=== PATIENT | male | born 1995 | race Caucasian/White ===

== ENCOUNTER 2022-05-26 09:30 | Inpatient (IN) | payer MEDICAID, OTHER ==
[~2022-05-26] VITALS: Ht 180.3 cm; Wt 53.2 kg
[2022-05-26 10:40] LABS: Basophils # (auto) 0.1 10 ^3/uL (0-0.2); Eosinophils # (auto) 0.1 10 ^3/uL (0-0.8); Lymphocytes # (auto) 0.9 10 ^3/uL (0.4-5.4); Lymphocytes % (auto) 8.6 % (10.0-50.0); Monocytes # (auto) 0.4 10 ^3/uL (0-1.3); Red Cell Distribution Width 16.6 % (11.8-14.3)
[2022-05-26 10:44] LABS: Basophils % (auto) 0.7 % (0.0-2.0); Eosinophils % (auto) 0.7 % (0.0-7.0); Hematocrit 34.3 % (41.0-53.0); Mean Corpuscular Hemoglobin 26.6 pg (28.0-32.0); Mean Corpuscular Hgb Conc. 32.1 g/dL (32.0-36.0); Mean Corpuscular Volume 82.9 fL (80.0-100.0); Monocytes % (auto) 4.4 % (0.0-12.0); Neutrophils # (auto) 8.5 10 ^3/uL (1.6-8.6); Neutrophils % (auto) 85.6 % (37.0-80.0); Red Blood Cells 4.13 10^6/uL (4.5-5.90)
[2022-05-26 10:53] LABS: Albumin 2.5 g/dL (3.4-5.0); Calcium 8.8 mg/dL (8.5-10.1)
[2022-05-26 10:56] LABS: BUN/Creatinine Ratio 19.4; Bilirubin, Total 0.1 mg/dL (0.2-1.0)
[2022-05-26 11:17] LABS: Urine Bacteria NONE SEEN /hpf (None Seen); Urine Blood Negative /uL (Negative); Urine Specific Gravity 1.027 (1.001-1.035); Urine WBC 97 /hpf (0 - 3)
[2022-05-26] MEDS ORDERED: SODIUM CHLORIDE 0.9% 2,000 ML IV ONE (11:30)
[2022-05-26] MEDS ORDERED: IOHEXOL 300 MG/ML 100ML BOTTLE IJ ONE (14:22)
[2022-05-26] MEDS ORDERED: SODIUM CHLORIDE 0.9% 1,000 ML IV ONE ×2 (14:30→15:15)
[2022-05-26] MEDS ORDERED: CLINDAMYCIN 600MG IV 50 ML IV ONE (14:30)
[2022-05-26] MEDS ORDERED: InsuLIN REG 1unit/0.01ml Soln (100units/ml) IV ONE (15:15)
[2022-05-26] MEDS ORDERED: DEXTROSE (50%) 50ML SYRG IV PRN (15:15)
[2022-05-26] MEDS ORDERED: ONDANSETRON HCL 4 MG/2 ML VIAL IV PRN (15:15)
[2022-05-26] MEDS: INSULIN LANTUS (GLARGINE) 1 /0.01ml (100units/ml) SC SCH (17:54)
[2022-05-26] MEDS: InsuLIN REG 1unit/0.01ml Soln (100units/ml) SC SCH ×3 (17:59→23:49)
[2022-05-26] MEDS: ACCU-CHEK COMFORT CURVE STRIP VI SCH ×3 (18:00→23:48)
[2022-05-26] MEDS: SODIUM CHLORIDE 0.9% 1,000 ML IV SCH ×2 (18:16→23:47)
[2022-05-26 21:41] VITALS: BP 121/87
[2022-05-26 22:00] VITALS: BP 121/87
[2022-05-26 22:14] LABS: Amphetamine Screen, Urine NEGATIVE (NEGATIVE); Barbiturate Scree,Urine NEGATIVE (NEGATIVE); Benzodiazephine Screen, Urine NEGATIVE (NEGATIVE); Cannabinoid Screen, Urine NEGATIVE (NEGATIVE); Cocaine Screen, Urine NEGATIVE (NEGATIVE); Opiate Scree,Urine NEGATIVE (NEGATIVE); Phencyclidine Screen, Urine NEGATIVE (NEGATIVE)
[2022-05-27] VITALS (7 sets, daily range): BP systolic 112–124; BP diastolic 67–84
[2022-05-27] MEDS: ACCU-CHEK COMFORT CURVE STRIP VI SCH ×5 (04:20→20:55)
[2022-05-27] MEDS: InsuLIN REG 1unit/0.01ml Soln (100units/ml) SC SCH ×5 (04:21→20:57)
[2022-05-27] MEDS: SODIUM CHLORIDE 0.9% 1,000 ML IV SCH ×3 (04:35→15:00)
[2022-05-27 05:49] LABS: Basophils # (auto) 0 10 ^3/uL (0-0.2); Eosinophils # (auto) 0.1 10 ^3/uL (0-0.8); Hemoglobin 9.1 g/dL (13.5-17.5); Neutrophils # (auto) 5.9 10 ^3/uL (1.6-8.6)
[2022-05-27 05:52] LABS: Basophils % (auto) 0.5 % (0.0-2.0); Eosinophils % (auto) 1.7 % (0.0-7.0); Hematocrit 27.5 % (41.0-53.0); Lymphocytes % (auto) 13.5 % (10.0-50.0); Mean Corpuscular Hemoglobin 26.8 pg (28.0-32.0); Mean Corpuscular Hgb Conc. 33.2 g/dL (32.0-36.0); Mean Corpuscular Volume 80.7 fL (80.0-100.0); Monocytes # (auto) 0.4 10 ^3/uL (0-1.3); Monocytes % (auto) 4.8 % (0.0-12.0); Neutrophils % (auto) 79.5 % (37.0-80.0); Red Blood Cells 3.41 10^6/uL (4.5-5.90); Red Cell Distribution Width 16.5 % (11.8-14.3); White Blood Cell 7.4 10^3/uL (4.4-10.8)
[2022-05-27 05:54] LABS: BUN/Creatinine Ratio 16.2; Calcium 7.8 mg/dL (8.5-10.1); Potassium 3.7 mmol/L (3.5-5.1)
[2022-05-27] MEDS: INSULIN LANTUS (GLARGINE) 1 /0.01ml (100units/ml) SC SCH (06:18)
[2022-05-27] MEDS ORDERED: PANTOPRAZOLE 40 MG/10 ML VIAL INJ IV SCH (10:00)
[2022-05-27] MEDS ORDERED: cefTRIAXone 1GM/50ML D5W 50 ML IV ONE (15:00)
[2022-05-27] MEDS: cefTRIAXone 1GM/50ML D5W 50 ML IV SCH (15:05)
[2022-05-28] MEDS: ACCU-CHEK COMFORT CURVE STRIP VI SCH ×6 (00:08→20:02)
[2022-05-28] MEDS: SODIUM CHLORIDE 0.9% 1,000 ML IV SCH ×4 (00:09→18:56)
[2022-05-28] MEDS: InsuLIN REG 1unit/0.01ml Soln (100units/ml) SC SCH ×6 (04:40→20:02)
[2022-05-28 05:00] VITALS: BP 122/56
[2022-05-28] MEDS: INSULIN LISPRO (HUMAN) 100 UNITS/ML ML SC SCH ×3 (06:10→16:36)
[2022-05-28] MEDS: INSULIN LANTUS (GLARGINE) 1 /0.01ml (100units/ml) SC SCH (06:11)
[2022-05-28 08:00] VITALS: BP 112/72
[2022-05-28] MEDS: cefTRIAXone 1GM/50ML D5W 50 ML IV SCH (08:38)
[2022-05-28 08:47] VITALS: BP 112/72
[2022-05-28] MEDS ORDERED: Glucerna 1.2 Cal 1Liter BOTTLE GT SCH (12:00)
[2022-05-28 13:00] VITALS: BP 109/64
[2022-05-28] MEDS ORDERED: LOPERAMIDE HCL 2 MG CAP/TAB PO ONE (16:15)
[2022-05-28 16:26] VITALS: BP 119/76
[2022-05-28 22:00] VITALS: BP 116/71
[2022-05-29] MEDS: ACCU-CHEK COMFORT CURVE STRIP VI SCH ×6 (00:14→20:28)
[2022-05-29] MEDS: SODIUM CHLORIDE 0.9% 1,000 ML IV SCH ×4 (02:07→23:15)
[2022-05-29] MEDS: InsuLIN REG 1unit/0.01ml Soln (100units/ml) SC SCH ×6 (03:45→20:26)
[2022-05-29 04:41] VITALS: BP 136/75
[2022-05-29] MEDS: INSULIN LISPRO (HUMAN) 100 UNITS/ML ML SC SCH ×3 (06:31→16:52)
[2022-05-29] MEDS: INSULIN LANTUS (GLARGINE) 1 /0.01ml (100units/ml) SC SCH (06:32)
[2022-05-29 08:00] VITALS: BP 109/68
[2022-05-29 09:00] VITALS: BP 109/68
[2022-05-29] MEDS: cefTRIAXone 1GM/50ML D5W 50 ML IV SCH (09:10)
[2022-05-29] MEDS: LOPERAMIDE HCL 2 MG CAP/TAB PO PRN ×3 (09:11→20:28)
[2022-05-29 12:49] VITALS: BP 116/81
[2022-05-29 14:05] LABS: Urine Bacteria FEW /hpf (None Seen); Urine Blood Negative /uL (Negative); Urine Budding Yeast OCCASIONAL /hpf (None Seen); Urine Specific Gravity 1.008 (1.001-1.035); Urine WBC 381 /hpf (0 - 3); Urine WBC Clumps PRESENT /hpf (None Seen)
[2022-05-29 17:00] VITALS: BP 108/84
[2022-05-29 22:00] VITALS: BP 102/68
[2022-05-30] MEDS: InsuLIN REG 1unit/0.01ml Soln (100units/ml) SC SCH ×7 (00:36→23:50)
[2022-05-30] MEDS: LOPERAMIDE HCL 2 MG CAP/TAB PO PRN ×2 (01:13→16:22)
[2022-05-30] MEDS: ACCU-CHEK COMFORT CURVE STRIP VI SCH ×7 (04:00→23:48)
[2022-05-30 05:00] VITALS: BP_SYST 100; BP_SYST 143; BP_DIAS 59; BP_DIAS 66
[2022-05-30] MEDS: SODIUM CHLORIDE 0.9% 1,000 ML IV SCH (05:16)
[2022-05-30] MEDS: INSULIN LISPRO (HUMAN) 100 UNITS/ML ML SC SCH ×3 (06:57→19:42)
[2022-05-30] MEDS ORDERED: INSULIN LANTUS (GLARGINE) 1 /0.01ml (100units/ml) SC SCH (07:00)
[2022-05-30 07:23] LABS: Eosinophils # (auto) 0.1 10 ^3/uL (0-0.8); Eosinophils % (auto) 1.7 % (0.0-7.0); Hemoglobin 9.5 g/dL (13.5-17.5); Monocytes # (auto) 0.5 10 ^3/uL (0-1.3); Neutrophils # (auto) 5.6 10 ^3/uL (1.6-8.6); White Blood Cell 7.3 10^3/uL (4.4-10.8)
[2022-05-30 07:25] LABS: Basophils # (auto) 0 10 ^3/uL (0-0.2); Basophils % (auto) 0.6 % (0.0-2.0); Hematocrit 28.4 % (41.0-53.0); Lymphocytes # (auto) 1.1 10 ^3/uL (0.4-5.4); Lymphocytes % (auto) 14.5 % (10.0-50.0); Mean Corpuscular Hemoglobin 26.7 pg (28.0-32.0); Mean Corpuscular Hgb Conc. 33.3 g/dL (32.0-36.0); Mean Corpuscular Volume 80.1 fL (80.0-100.0); Monocytes % (auto) 6.3 % (0.0-12.0); Neutrophils % (auto) 76.9 % (37.0-80.0); Red Blood Cells 3.55 10^6/uL (4.5-5.90); Red Cell Distribution Width 16.5 % (11.8-14.3)
[2022-05-30 07:39] LABS: Albumin 1.9 g/dL (3.4-5.0); Calcium 7.6 mg/dL (8.5-10.1); Potassium 4.5 mmol/L (3.5-5.1)
[2022-05-30 07:42] LABS: BUN/Creatinine Ratio 16.7; Bilirubin, Total 0.1 mg/dL (0.2-1.0); CRP High Sensitivity 0.84 mg/dL (< 0.3); Total Protein 5.5 g/dL (6.4-8.2)
[2022-05-30] MEDS: cefTRIAXone 1GM/50ML D5W 50 ML IV SCH (08:09)
[2022-05-30 09:00] VITALS: BP 107/69
[2022-05-30 12:28] VITALS: BP 103/63
[2022-05-30 17:21] VITALS: BP 107/63
[2022-05-30 22:00] VITALS: BP 106/61
[2022-05-31] MEDS: ACCU-CHEK COMFORT CURVE STRIP VI SCH ×5 (03:56→20:00)
[2022-05-31] MEDS: InsuLIN REG 1unit/0.01ml Soln (100units/ml) SC SCH ×5 (04:01→21:19)
[2022-05-31] MEDS: INSULIN LISPRO (HUMAN) 100 UNITS/ML ML SC SCH ×3 (06:20→17:31)
[2022-05-31] MEDS: INSULIN LANTUS (GLARGINE) 1 /0.01ml (100units/ml) SC SCH (06:20)
[2022-05-31] MEDS: cefTRIAXone 1GM/50ML D5W 50 ML IV SCH (07:58)
[2022-05-31 08:00] VITALS: BP 104/65
[2022-05-31 08:49] VITALS: BP 104/65
[2022-05-31 13:00] VITALS: BP 107/67
[2022-05-31] MEDS ORDERED: Glucerna 1.2 Cal 1Liter BOTTLE PO SCH (14:15)
[2022-05-31] MEDS ORDERED: BACDST PO (14:25)
[2022-05-31 16:49] VITALS: BP 111/68
[2022-05-31] MEDS: Glucerna Carbsteady SHAKE Vanilla 8oz PO SCH (18:43)
[2022-05-31 22:00] VITALS: BP 116/65
[2022-06-01] MEDS: ACCU-CHEK COMFORT CURVE STRIP VI SCH ×3 (00:21→08:23)
[2022-06-01] MEDS: InsuLIN REG 1unit/0.01ml Soln (100units/ml) SC SCH ×3 (04:52→08:00)
[2022-06-01 05:00] VITALS: BP 112/71
[2022-06-01] MEDS: INSULIN LANTUS (GLARGINE) 1 /0.01ml (100units/ml) SC SCH (06:46)
[2022-06-01] MEDS: INSULIN LISPRO (HUMAN) 100 UNITS/ML ML SC SCH (06:46)
[2022-06-01] MEDS: Glucerna Carbsteady SHAKE Vanilla 8oz PO SCH (08:23)
[2022-06-01 09:00] VITALS: BP 100/63
== END 2022-06-01 09:30 | disposition home or self-care (01) | DRG 420 ==
LOC: ER 09:30 → TELE 15:12 → TELE-CENTR 21:30 → CENTRAL 05-31 12:05
PROVIDERS: ADMIT Nurse Practitioner Family; ATTEND Student in an Organized Health Care Education/Training Program
DX: E11.00 Type 2 diabetes mellitus with hyperosmolarity without nonketotic hyperglycemic-hyperosmolar coma (NKHHC) (principal); R64 Cachexia; E46 Unspecified protein-calorie malnutrition; L03.317 Cellulitis of buttock; N12 Tubulo-interstitial nephritis, not specified as acute or chronic; K76.0 Fatty (change of) liver, not elsewhere classified; Z20.822 Contact with and (suspected) exposure to COVID-19; R19.7 Diarrhea, unspecified; E86.0 Dehydration; F15.90 Other stimulant use, unspecified, uncomplicated; N30.00 Acute cystitis without hematuria; Z91.14 Patient's other noncompliance with medication regimen; Z88.0 Allergy status to penicillin; Z79.4 Long term (current) use of insulin; Z68.1 Body mass index [BMI] 19.9 or less, adult
CPT/HCPCS: 36415; 36600; 74177; 80048; 80053; 80307; 81001; 82010; 82805; 82962; 83036; 85025; 85652; 86141; 87045; 87086; 87177; 87426; 87427; 87493; 96361; 96365; 96366; 96372; 96375; C9113; G0378; J0696; J1815; J2405; J3490